=== PATIENT | female | born 1990 | race Caucasian/White ===

== ENCOUNTER 2017-06-30 16:33 | Emergency (ER) | payer BC ==
[2017-06-30 17:17] LABS: URINE HCG POC HCG NEGATIVE (Negative)
[2017-06-30 17:19] LABS: BILIRUBIN,URINE NEGATIVE (NEG); GLUCOSE,URINE NEGATIVE (NEG); NITRITE,URINE NEGATIVE (NEG); PROTEIN,URINE NEGATIVE (NEG-TRACE); UROBILINOGEN,URINE 0.2 mg/dL (0.2 mg/dL)
[2017-06-30 17:21] LABS: HEMATOCRIT 40.1 % (36.0-47.0); HEMOGLOBIN 13.5 g/dL (12.0-15.5); MEAN CORPUSCULAR HEMOGLOBIN 28 pg (25-35); MEAN CORPUSCULAR HGB CONC 34 g/dL (31-37); MEAN CORPUSCULAR VOLUME 82 fL (79-100); PLATELET COUNT 206 x10^3/uL (140-400); RED BLOOD COUNT 4.89 x10^6/uL (3.50-5.40); RED CELL DISTRIBUTION WIDTH 13.4 % (11.5-14.5)
[2017-06-30 17:27] LABS: BACTERIA,URINE MOD /HPF (0-FEW); RBC,URINE 0 /HPF (0-2); SQUAMOUS EPITHELIAL CELL,UR MANY /LPF; YEAST,URINE PRESENT /HPF
[2017-06-30 17:31] LABS: ANION GAP 10 (6-14); BLOOD UREA NITROGEN 7 mg/dL (7-20); BUN/CREATININE RATIO 10 (6-20); CALCIUM 8.2 mg/dL (8.5-10.1); CARBON DIOXIDE 25 mmol/L (21-32); CHLORIDE 105 mmol/L (98-107); CREATININE 0.7 mg/dL (0.6-1.0); GFR 99.6; GLUCOSE 93 mg/dL (70-99); POTASSIUM 3.6 mmol/L (3.5-5.1); SODIUM 140 mmol/L (136-145)
[2017-06-30 17:37] LABS: ALBUMIN 3.8 g/dL (3.4-5.0); ALBUMIN/GLOBULIN RATIO 0.9 (1.0-1.7); ALK PHOS 158 U/L (46-116); ALT (SGPT) 23 U/L (14-59); AST (SGOT) 13 U/L (15-37); TOTAL BILIRUBIN 0.2 mg/dL (0.2-1.0)
[2017-06-30] MEDS: FLUCONAZOLE 100 MG TABLET. PO (18:23)
[2017-06-30] MEDS: HYDROcodone/APAP 5/325MG 1 TAB TABLET PO (18:23)
[2017-06-30] MEDS: CLINDAMYCIN 600MG PREMIX 50 ML IV (18:23)
[2017-06-30] MEDS: LIDOCAINE WITH 8.4% SOD BICARB 3 ML DISP.SYRIN. IJ (19:26)
== END 2017-06-30 19:49 | disposition home or self-care (01) ==
LOC: ER 16:33
DX: T81.4XXA Infection following a procedure, initial encounter (principal); L02.211 Cutaneous abscess of abdominal wall; Y83.8 Other surgical procedures as the cause of abnormal reaction of the patient, or of later complication, without mention of misadventure at the time of the procedure; Y92.89 Other specified places as the place of occurrence of the external cause
CPT/HCPCS: 10160; 36415; 76857; 80053; 81001; 81025; 85027; 96365; 99285-25; J3490

== ENCOUNTER → 2018-09-23 | Outpatient (CLI) | payer BC ==
[2017-06-30 19:22] VITALS: BP 121/77
[~2018-09-23] MED LIST: CLIN300C8 PO; FLUC150T PO; HYDR-3164 PO; birth control
--- NOTE | 2018-09-24 08:10 | KCIC ---
EXAM: MRI RIGHT ELBOW DATE: 09/23/2018 4:15 PM CLINICAL INDICATION: Right elbow pain. Vertebral tunnel syndrome. Lateral epicondylitis. History of right ulnar transposition. COMPARISON: None. TECHNIQUE: Multiplanar, multisequence MR imaging of the right elbow was performed without IV contrast. FINDINGS: Physiologic right elbow joint fluid. The ulnar collateral ligament is intact. The common flexor tendon origin is intact however there is mild associated increased soft tissue signal about the attachment possibly postsurgical although medial epicondylitis with have similar appearance. Susceptibility artifact is seen about the lateral condyle. The common extensor tendon origin is intact. The radial collateral ligament and lateral ulnar collateral ligament are intact. The annular ligament cannot be well delineated. Biceps tendon is intact with normal signal and morphology. Triceps tendon is intact with normal signal and morphology. Normal muscle signal and bulk of the forearm. Postoperative changes of the ulnar nerve transposition is seen, now the ulnar nerve is seen overlying the anterior aspect of the medial epicondyle. There is increased signal and mild thickening of the ulnar nerve with subtle perineural edema (series 4 image [id number]). Jointline preserved; articular cartilage preserved. Negative osteochondral lesion. Normal bone marrow signal without edema, fracture or AVN. IMPRESSION: 1. Changes of ulnar nerve transposition are now seen with the ulnar nerve now overlying the medial epicondyle. The ulnar nerve in this region is abnormal with thickening and increased intrinsic ulnar nerve signal with associated soft tissue edema about the ulnar nerve is well. This may result in ulnar neuropathy. However there is no associated fatty atrophy of the forearm muscles. 2. Mild soft tissue edema about the common flexor tendon origin, likely postsurgical however mediastinal epicondylitis may have similar appearance. 3. Postsurgical changes about the common extensor tendon origin which is otherwise intact. Electronically signed by: Oneal Florence MD (09/24/2018 8:03 AM) [facility]
== END | disposition home or self-care (01) ==
LOC: KCIC MRI 15:33
PROVIDERS: ATTEND Orthopaedic Surgery Hand Surgery
DX: G56.21 Lesion of ulnar nerve, right upper limb (principal); M77.11 Lateral epicondylitis, right elbow; R60.0 Localized edema; Z98.890 Other specified postprocedural states
CPT/HCPCS: 73221

== ENCOUNTER → 2019-08-08 | Outpatient (CLI) | payer BC ==
[2017-06-30 19:22] VITALS: BP 121/77
--- NOTE | 2019-08-08 16:52 | KCIC ---
PELVIS W/TV History: Pelvic pain, previous endometrial ablation Comparison: June 30, 2017 limited exam which did not evaluate the pelvic anatomy Findings: Multiple transabdominal sonographic images of the pelvis are submitted. Pelvic structures are somewhat poorly seen. Transvaginal ultrasound: Multiple transvaginal sonographic images of pelvis are submitted. Uterus measured 9.5 x 4.6 x 7.2 cm. Endometrium is within normal limits in thickness about 0.5 cm. There are some nabothian cysts. No free fluid is demonstrated. There is nonspecific heterogeneity of the uterine parenchyma. Right ovary measured 4 x 2.8 x 3.8 cm. There is a focus of hypoechogenicity of the right ovary, overall greatest dimension about 2.4 x 1.6 x 1.9 cm. There is associated internal more solid-appearing, [place] nodule which is associated with increased vascularity on color Doppler imaging, nodule about 0.8 cm in size. Left ovary measured 4 x 3.4 x 3.6 cm. There is round lesion of the left ovary about 2.1 x 2 x 1.7 cm in size not associated with internal vascularity on color Doppler imaging, diffuse internal echoes present. There is normal color flow and low resistance vascularity of the bilateral ovaries. Impression: 1. There is a cystic lesion of the right ovary although there is an internal, solid-appearing mural nodule with internal vascularity. It is presumed the patient is not . MRI pelvis may be beneficial. If this is not performed, short-term follow-up in 2 months is advised. There is also an avascular lesion of the left ovary which may be sequela of an endometrioma or hemorrhagic cyst. Electronically signed by: Kain Beck MD (08/08/2019 4:49 PM) [facility]
== END | disposition home or self-care (01) ==
LOC: KCIC US 10:45
PROVIDERS: ATTEND Obstetrics & Gynecology
DX: N88.8 Other specified noninflammatory disorders of cervix uteri (principal); N83.8 Other noninflammatory disorders of ovary, fallopian tube and broad ligament
CPT/HCPCS: 76830; 76856

== ENCOUNTER 2020-10-06 13:51 | Emergency (ER) | payer BC ==
[~2020-10-06] VITALS: Ht 160 cm; Wt 84.1 kg
[~2020-10-06 13:51] MED LIST changes: -CLIN300C8 PO; +CLIN300C9 PO
[2020-10-06] MEDS ORDERED: ONDANSETRON PF 4 MG/2 ML VIAL. IV ONE (14:15)
[2020-10-06] MEDS ORDERED: MORPHINE SULFATE 4 MG/ML VIAL. IV ONE (14:15)
[2020-10-06] MEDS ORDERED: IV NORMAL SALINE 1000ML BAG 1,000 ML IV ONE (14:15)
--- NOTE | 2020-10-06 14:20 | ED.ADGEN ---
Past Medical History Past Medical History: No Pertinent History, Other Additional Past Medical Histor: endometriosis Past Surgical History: Hysterectomy (PARTIAL), Other Additional Past Surgical Histo: Cyst removal lower abdomen, uterine ablation, bilat wrist/elb Smoking Status: Current Every Day Smoker Alcohol Use: None Drug Use: None General Adult EDM: Chief Complaint: ABDOMINAL PAIN HPI: HPI: Patient is a 29 year old female who presents emergency department via EMS with complaints of severe right lower quadrant abdominal pain. EMS reports that the patient was given 6 mg of morphine in route to the hospital and continues to complain of severe abdominal pain. Patient reports that the pain began this morning but became significantly worse over the last hour. She reports a history of partial hysterectomy but states she still has both of her ovaries. Patient denies any vomiting, diarrhea, constipation, fever, cough, chest pain, shortness of breath, body aches, fatigue, or dysuria. Patient states that she has had some nausea. She currently rates her pain a 10 out of 10 on pain scale, she denies any alleviating factors, the pain is worse with palpation. Review of Systems: Review of Systems: Complete ROS is negative unless otherwise noted in HPI. Current Medications: Current Medications Medications (Trade) Dose Ordered Sig/Prashanth Start Time Stop Time Status Last Admin Dose Admin Hydromorphone HCl (Dilaudid) 1 mg 1X ONCE 10/06/20 18:15 10/06/20 18:16 DC Info (CONTRAST GIVEN -- Rx MONITORING) 1 each PRN DAILY PRN 10/06/20 15:30 10/06/20 20:50 DC Iohexol (Omnipaque 300 Mg/ml) 75 ml 1X ONCE 10/06/20 15:30 10/06/20 15:31 DC 10/06/20 15:36 75 ML Morphine Sulfate (Morphine Sulfate) 4 mg 1X ONCE 10/06/20 14:15 10/06/20 14:16 DC 10/06/20 14:34 4 MG Ondansetron HCl (Zofran) 4 mg PRN Q8HRS PRN 10/06/20 18:45 10/06/20 20:50 DC Sodium Chloride 1,000 ml @ 100 mls/hr Q10H 10/06/20 18:45 10/06/20 20:50 DC Allergies: Allergies: Allergies Coded Allergies Type Severity Reaction Last Updated Verified No Known Drug Allergies 10/18/13 No Physical Exam: PE: See Above Constitutional: Well developed, well nourished, moderate distress, nontoxic appearance, appears uncomfortable HENT: Normocephalic, atraumatic, bilateral external ears normal, nose normal. [] Eyes: PERRLA, EOMI, conjunctiva normal, no discharge. [] Neck: Normal range of motion, no stridor. [] Cardiovascular:Heart rate regular rhythm Lungs & Thorax: Respirations even and unlabored, no retractions, no respiratory distress Abdomen: soft, right lower quadrant tenderness to palpation, no palpable mass, no pulsatile mass, positive Rovsing sign, positive McBurney's point tenderness, negative obturator and psoas signs Skin: Warm, dry, no erythema, no rash; patient has a pink birthmark in the right lower quadrant. [] Extremities: No cyanosis, ROM intact, no edema. [] Neurologic: Alert and oriented X 3, normal motor, normal sensory, no focal deficits noted. [] Psychologic: Affect normal, judgement normal, mood irritable Current Patient Data: Labs: Laboratory Tests Test 10/06/20 14:25 10/06/20 15:05 10/06/20 15:45 White Blood Count 10.1 x10^3/uL (4.0-11.0) Red Blood Count 5.00 x10^6/uL (3.50-5.40) Hemoglobin 14.4 g/dL (12.0-15.5) Hematocrit 41.4 % (36.0-47.0) Mean Corpuscular Volume 83 fL (79-100) Mean Corpuscular Hemoglobin 29 pg (25-35) Mean Corpuscular Hemoglobin Concent 35 g/dL (31-37) Red Cell Distribution Width 12.9 % (11.5-14.5) Platelet Count 188 x10^3/uL (140-400) Neutrophils (%) (Auto) 69 % (31-73) Lymphocytes (%) (Auto) 23 % (24-48) L Monocytes (%) (Auto) 7 % (0-9) Eosinophils (%) (Auto) 1 % (0-3) Basophils (%) (Auto) 0 % (0-3) Neutrophils # (Auto) 7.0 x10^3/uL (1.8-7.7) Lymphocytes # (Auto) 2.3 x10^3/uL (1.0-4.8) Monocytes # (Auto) 0.7 x10^3/uL (0.0-1.1) Eosinophils # (Auto) 0.1 x10^3/uL (0.0-0.7) Basophils # (Auto) 0.0 x10^3/uL (0.0-0.2) Sodium Level 141 mmol/L (136-145) Potassium Level 3.4 mmol/L (3.5-5.1) L Chloride Level 107 mmol/L (98-107) Carbon Dioxide Level 23 mmol/L (21-32) Anion Gap 11 (6-14) Blood Urea Nitrogen 7 mg/dL (7-20) Creatinine 0.6 mg/dL (0.6-1.0) Estimated GFR (Cockcroft-Gault) 116.6 BUN/Creatinine Ratio 12 (6-20) Glucose Level 79 mg/dL (70-99) Calcium Level 8.7 mg/dL (8.5-10.1) Magnesium Level 2.0 mg/dL (1.8-2.4) Total Bilirubin 0.3 mg/dL (0.2-1.0) Aspartate Amino Transferase (AST) 14 U/L (15-37) L Alanine Aminotransferase (ALT) 22 U/L (14-59) Alkaline Phosphatase 131 U/L (46-116) H Total Protein 7.5 g/dL (6.4-8.2) Albumin 3.5 g/dL (3.4-5.0) Albumin/Globulin Ratio 0.9 (1.0-1.7) L Lipase 55 U/L (73-393) L SARS-CoV-2 Antigen (Rapid) Negative (NEGATIVE) Urine Collection Type Unknown Urine Color Yellow Urine Clarity Clear Urine pH 7.5 (<5.0-8.0) Urine Specific Hartley 1.025 (1.000-1.030) Urine Protein Negative mg/dL (NEG-TRACE) Urine Glucose (UA) Negative mg/dL (NEG) Urine Ketones (Stick) Negative mg/dL (NEG) Urine Blood Negative (NEG) Urine Nitrite Negative (NEG) Urine Bilirubin Negative (NEG) Urine Urobilinogen Dipstick 0.2 mg/dL (0.2 mg/dL) Urine Leukocyte Esterase Negative (NEG) Urine RBC 0 /HPF (0-2) Urine WBC Rare /HPF (0-4) Urine Squamous Epithelial Cells Mod /LPF Urine Bacteria Few /HPF (0-FEW) Urine Mucus Mod /LPF Laboratory Tests 10/06/20 14:25 Laboratory Tests 10/06/20 14:25 Vital Signs: Vital Signs Date Time Temp Pulse Resp B/P (MAP) Pulse Ox O2 Delivery O2 Flow Rate FiO2 10/06/20 18:30 79 114/72 (86) 98 Room Air 10/06/20 15:04 18 10/06/20 13:55 98.3 98.3 EKG: EKG: [] Heart Score: C/O Chest Pain: No Risk Scores: Score 0 - 3: 2.5% MACE over next 6 weeks - Discharge Home Score 4 - 6: 20.3% MACE over next 6 weeks - Admit for Clinical Observation Score 7 - 10: 72.7% MACE over next 6 weeks - Early Invasive Strategies Radiology/Procedures: Radiology/Procedures: PROCEDURE: PELVIS W/TV EXAM: Pelvic ultrasound HISTORY: Right pelvic pain, ovarian cyst. COMPARISON: 10/06/2020. FINDINGS: Sonographic evaluation of the pelvis was performed transabdominally and transvaginally. The uterus is surgically absent. There is moderate free pelvic fluid with a s mall amount of debris, but no clear gross clot. The right ovary measures 3.5 x 2.5 x 2.5 cm. And contains small follicles without clear suspicious lesions. The left ovary measures 2.7 x 2.0 x 1.7 cm. There is normal Doppler flow bilaterally. IMPRESSION: 1. Moderate free pelvic fluid may reflect subacute hemorrhage from a resolving right ovarian lesion, or be reactive. No suspicious lesions are identified. Electronically signed by: Margo Rubio MD (10/06/2020 6:01 PM) [facility] PROCEDURE: CT ABD PELV W/ IV CONTRST ONLY CT abdomen pelvis with contrast dated 10/06/2020. No comparison available. CLINICAL INDICATION: Right lower quadrant pain. TECHNIQUE: Contiguous axial imaging the abdomen pelvis performed following the intravenous administration of 75 cc Omnipaque 300. One or more of the following individualized dose reduction techniques were utilized for this examination: 1. Automated exposure control 2. Adjustment of the mA and/or kV according to patient size 3. Use of iterative reconstruction technique. FINDINGS: Limited images of lung bases are clear. Heart size is upper limits of normal. No pleural or pericardial effusion. Liver is of mild low density suggesting fatty infiltration. No apparent mass. Biliary tree normal in caliber. Gallbladder unremarkable. Spleen is normal in size. Pancreas, adrenal glands and kidneys are unremarkable. Unopacified GI tract normal in caliber and contour. No focal bowel wall thickening. No inflammatory stranding in the mesentery. No ascites or lymphadenopathy. The appendix is not clearly identified. No inflammatory changes in the right lower quadrant. Images of pelvis show mildly distended urinary bladder. Uterus is not well visualized and may be small or surgically absent. There is a small amount of free pelvic fluid. No pelvic adenopathy. Complex cystic focus at the right ovary measuring 3.9 cm. Bone windows show no acute findings. Multilevel spondylosis. IMPRESSION: 1. No acute abnormality of abdomen or pelvis. 2. The appendix is not clearly identified. No inflammatory changes in the right lower quadrant. 3. Small amount of free pelvic fluid, nonspecific. 4. Complex cystic focus at the right ovary difficult to accurately evaluate but possibly measuring up to 3.9 cm in size. Follow-up pelvic ultrasound would better evaluate. Electronically signed by: Karthik Meadows MD (10/06/2020 4:17 PM) [facility] [] Course & Med Decision Making: Course & Med Decision Making Pertinent Labs and Imaging studies reviewed. (See chart for details) [id number] spoke with Dr. Schmitz about the patient and advised of the patient ultrasound and CT reports. I discussed the patient's presentation with Dr. Schmitz who agreed to admit the patient for observation status for what is likely a right hemorrhagic ovarian cyst. I will keep the patient n.p.o. and order NS at 100 mL/h. I discussed the need for admission with the patient and her . At first they agreed to be admitted to the hospital however, shortly after the decision to admit the patient changed her mind and decided to leave AGAINST MEDICAL ADVICE. Patient reported that she wanted to go home and see how she does. I again advised the patient to stay in the hospital as she could have a surgical abdomen if her symptoms worsen. Patient reports that her [employer] is at [place] and she feels more comfortable going to that facility if there is an emergency. I again advised the patient that this is against my medical advice the patient stated that she understood and wanted to leave anyway. I advised her to return to an emergency room or call 911 if her symptoms worsened. The patient signed out AMA and went home with her . [] Sommer Disclaimer: Sommer Disclaimer: This electronic medical record was generated, in whole or in part, using a voice recognition dictation system. Departure Departure Impression: Primary Impression: Left against medical advice Additional Impression: Hemorrhagic cyst of right ovary Disposition: 07 AMA/ELOPED/LWBS Condition: STABLE Referrals: BRENDON CRUM MD (PCP) Problem Qualifiers SUZANNE OROPEZA APRN Oct 06, 2020 14:20
[2020-10-06] MEDS ORDERED: HYDROmorphone 2 MG/ML VIAL IVP ONE ×2 (14:45→18:15)
[2020-10-06 14:54] LABS: BASO % 0 % (0-3); EOS # 0.1 x10^3/uL (0.0-0.7); EOS % 1 % (0-3); HEMATOCRIT 41.4 % (36.0-47.0); HEMOGLOBIN 14.4 g/dL (12.0-15.5); LYMPH # 2.3 x10^3/uL (1.0-4.8); LYMPH % 23 % (24-48); MEAN CORPUSCULAR HEMOGLOBIN 29 pg (25-35); MEAN CORPUSCULAR HGB CONC 35 g/dL (31-37); MEAN CORPUSCULAR VOLUME 83 fL (79-100); MONO # 0.7 x10^3/uL (0.0-1.1); MONO % 7 % (0-9); NEUT % 69 % (31-73); PLATELET COUNT 188 x10^3/uL (140-400); RED CELL DISTRIBUTION WIDTH 12.9 % (11.5-14.5); WHITE BLOOD COUNT 10.1 x10^3/uL (4.0-11.0)
[2020-10-06 15:16] LABS: CALCIUM 8.7 mg/dL (8.5-10.1); CREATININE 0.6 mg/dL (0.6-1.0); GFR 116.6; POTASSIUM 3.4 mmol/L (3.5-5.1)
[2020-10-06 15:23] LABS: ALBUMIN 3.5 g/dL (3.4-5.0); ALBUMIN/GLOBULIN RATIO 0.9 (1.0-1.7); TOTAL BILIRUBIN 0.3 mg/dL (0.2-1.0); TOTAL PROTEIN 7.5 g/dL (6.4-8.2)
[2020-10-06] MEDS ORDERED: IOHEXOL 300 MG/ML 100ML VIAL. IV ONE (15:30)
[2020-10-06] MEDS ORDERED: CONTRAST GIVEN. MC PRN (15:30)
[2020-10-06 15:57] LABS: BILIRUBIN,URINE NEGATIVE (NEG); CLARITY,URINE CLEAR; COLOR,URINE YELLOW; NITRITE,URINE NEGATIVE (NEG); PH,URINE 7.5 (<5.0-8.0); PROTEIN,URINE NEGATIVE (NEG-TRACE); UROBILINOGEN,URINE 0.2 mg/dL (0.2 mg/dL)
[2020-10-06 16:06] LABS: BACTERIA,URINE FEW /HPF (0-FEW); RBC,URINE 0 /HPF (0-2); WBC,URINE RARE /HPF (0-4)
--- NOTE | 2020-10-06 16:19 | RAD ---
CT abdomen pelvis with contrast dated 10/06/2020. No comparison available. CLINICAL INDICATION: Right lower quadrant pain. TECHNIQUE: Contiguous axial imaging the abdomen pelvis performed following the intravenous administration of 75 cc Omnipaque 300. One or more of the following individualized dose reduction techniques were utilized for this examinat ion: 1. Automated exposure control 2. Adjustment of the mA and/or kV according to patient size 3. Use of iterative reconstruction technique. FINDINGS: Limited images of lung bases are clear. Heart size is upper limits of normal. No pleural or pericardi al effusion. Liver is of mild low density suggesting fatty infiltration. No apparent mass. Biliary tree normal in caliber. Gallbladder unremarkable. Spleen is normal in size. Pancreas, adrenal glands and kidneys are unremarkable. Unopacified GI tract normal in caliber and contour. No focal bowel wall thickening. No inflammatory s tranding in the mesentery. No ascites or lymphadenopathy. The appendix is not clearly identified. No inflammatory changes in the right lower quadrant. Images of pelvis show mildly distended urinary bladder. Uterus is not well visualized and may be smal l or surgically absent. There is a small amount of free pelvic fluid. No pelvic adenopathy. Complex c ystic focus at the right ovary measuring 3.9 cm. Bone windows show no acute findings. Multilevel spondylosis. IMPRESSION: 1. No acute abnormality of abdomen or pelvis. 2. The appendix is not clearly identified. No inflammatory changes in the right lower quadrant. 3. Small amount of free pelvic fluid, nonspecific. 4. Complex cystic focus at the right ovary difficult to accurately evaluate but possibly measuring up to 3.9 cm in size. Follow-up pelvic ultrasound would better evaluate. Electronically signed by: Karthik Meadows MD (10/06/2020 4:17 PM) [facility]
--- NOTE | 2020-10-06 18:03 | RAD ---
EXAM: Pelvic ultrasound HISTORY: Right pelvic pain, ovarian cyst. COMPARISON: 10/06/2020. FINDINGS: Sonographic evaluation of the pelvis was performed transabdominally and transvaginally. The uterus is surgically absent. There is moderate free pelvic fluid with a small amount of debris, b ut no clear gross clot. The right ovary measures 3.5 x 2.5 x 2.5 cm. And contains small follicles without clear suspicious le sions. The left ovary measures 2.7 x 2.0 x 1.7 cm. There is normal Doppler flow bilaterally. IMPRESSION: 1. Moderate free pelvic fluid may reflect subacute hemorrhage from a resolving right ovarian lesion, or be reactive. No suspicious lesions are identified. Electronically signed by: Margo Rubio MD (10/06/2020 6:01 PM) [facility] [place]
[2020-10-06 18:30] VITALS: BP 114/72
[2020-10-06] MEDS ORDERED: IV NORMAL SALINE 1000ML BAG 1,000 ML IV SCH (18:45)
[2020-10-06] MEDS ORDERED: ONDANSETRON PF 4 MG/2 ML VIAL. IV PRN (18:45)
== END 2020-10-06 19:30 | disposition left against medical advice (07) ==
LOC: ER 13:51
DX: N83.291 Other ovarian cyst, right side (principal); Z20.822 Contact with and (suspected) exposure to COVID-19; R10.31 Right lower quadrant pain; R11.0 Nausea; F17.200 Nicotine dependence, unspecified, uncomplicated; Z90.710 Acquired absence of both cervix and uterus; Z98.890 Other specified postprocedural states
CPT/HCPCS: 36415; 74177; 76830; 76856; 80053; 81001; 83690; 83735; 85025; 87426; 96361; 96374; 96375; 99285; J1170; J2270; J2405; J7030; Q9967; U0003

== ENCOUNTER → 2021-07-28 | Outpatient (CLI) | payer BC ==
[~2021-07-28] MED LIST changes: +CLIN-94 PO; -CLIN300C9 PO
--- NOTE | 2021-07-28 16:31 | KCIC ---
EXAM: MRI RIGHT ELBOW DATE: 07/28/2021 1:55 PM CLINICAL INDICATION: Reason: RIGHT ULNER NERVE PAIN / Spl. Instructions: Sx since last surgery involv ing the ulner nerve 2 yrs ago. / History: Pt c/o numbness down her entire rt arm but especially in rt elbow. COMPARISON: None. TECHNIQUE: Multiplanar, multisequence MR imaging of the right elbow was performed without IV contrast . FINDINGS: No elbow joint effusion. Biceps and brachialis tendons are intact. No bicipitoradial bursal distention. Susceptibility artifact is seen at the lateral epicondyle from prior surgery. The common extensor ten don and radial collateral ligament as well as the lateral ulnar collateral ligament are intact. Common flexor tendon and ulnar collateral ligament are intact. Triceps tendon is intact. Grossly normal muscle bulk and signal without fatty atrophy. Changes of ulnar nerve transposition are seen. Ulnar nerve is normal in caliber and signal. Articular cartilage is grossly preserved. No acute fracture or osteonecrosis. IMPRESSION: Changes of ulnar nerve transposition are seen. Ulnar nerve is normal in caliber and signal. Postsurgical changes at the lateral epicondyle with intact common extensor tendon and radial and late ral ulnar collateral ligaments Electronically signed by: Oneal Florence MD (07/28/2021 4:29 PM) [id number]
== END ==
LOC: KCIC MRI 13:42
PROVIDERS: ATTEND Orthopaedic Surgery Hand Surgery
DX: G56.21 Lesion of ulnar nerve, right upper limb (principal); M25.521 Pain in right elbow; Z98.890 Other specified postprocedural states
CPT/HCPCS: 73221